=== PATIENT | female | born 1985 | race Caucasian/White ===

== ENCOUNTER 2018-10-12 22:18 | Emergency (ER) | payer BC ==
--- NOTE | 2018-10-12 23:02 | ED ---
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 She states that she drank a little. Per the EMS she was attempting to ride a bus to [place] but missed the bus several times. [facility] and was supposed to start detox today. She also denies n/v. LEVEL 5 CAVEAT. Full Hx unobtainable due to pt being intoxicated. - History Of Current Complaint Chief Complaint: EDSubstanceAbuse Stated Complaint: 2208, SUBSTANCE ABUSE PER EMS Time Seen by Provider: 10/12/18 22:32 Hx From Patient Unobtainable Due To: Other - LEVEL 5 CAVEAT. Full Hx unobtainable due to pt being intoxicated. Ingestion History: Type/Name Of Drug - EtOH Overdose Characteristics: Oral Severity Initially: Moderate Severity Currently: Moderate Associated Signs And Symptoms: Negative - n/v PMH/Surg Hx/FS Hx/Imm Hx Sensory History: Denies: Hx Legally Blind, Hx Deafness Opthamlomology History: Denies: Hx Legally Blind EENT History: Denies: Hx Deafness Infectious Disease History: No Infectious Disease History: Denies: Traveled Outside the [place] in Last 30 Days - Family History Family History: LEVEL 5 CAVEAT. Full Hx unobtainable due to pt being intoxicated. - Social History Alcohol Use: Daily Substance Use Type: Reports: Other Substance Use Comment - Amount & Last Used: unknown Smoking Status (MU): Unknown if Ever Smoked Review of Systems Negative: Vomiting, Nausea All Other Systems Reviewed And Are Negative: No - Comments Additional Review of Systems Comments: LEVEL 5 CAVEAT. Full Hx unobtainable due to pt being intoxicated. Physical Exam - Summary Physical Exam Summary: Appearance: Well-appearing, Well-nourished, lying in bed comfortable, intoxicated Skin: Warm, dry, no obvious rash Eyes: sclera anicteric, no conjunctival pallor ENT: mucous membranes moist Neck: deferred Respiratory: No signs of respiratory distress Cardiovascular: Appears well perfused, pulses are nml Abdomen: deferred Musculoskeletal: Moving all 4 extremities without obvious discomfort Neurological: Awake and alert, mentation is normal, speech is fluent and appropriate Psychiatric: affect is normal, does not appear anxious or depressed, No head trauma, arouses to voice, can answer simple questions, mostly mumbling incoherently. Triage Information Reviewed: Yes Vital Signs On Initial Exam: Initial Vitals Temp Pulse Resp BP Pulse Ox 96.8 F 80 16 106/76 98 10/12/18 22:21 10/12/18 22:21 10/12/18 22:21 10/12/18 22:21 10/12/18 22:21 Vital Signs Reviewed: Yes Completion Of Physical Exam Limited Due To: Level 5 - LEVEL 5 CAVEAT. Full Hx unobtainable due to pt being intoxicated. Diagnostics - Vital Signs Vital Signs Temp Pulse Resp BP Pulse Ox 10/12/18 22:21 96.8 F 80 16 106/76 98 - Laboratory Lab Statement: Any lab studies that have been ordered have been reviewed, and results considered in the medical decision making process. Course/Dx - Diagnoses Provider Diagnoses: Alcohol intoxication Discharge ED - Sign-Out/Discharge Documenting (check all that apply): Patient Departure Patient Received Moderate/Deep Sedation with Procedure: No - Discharge Plan Condition: Improved Disposition: HOME Patient Education Materials: Alcohol Intoxication (ED) Referrals: [facility] [Outside] - Billing Disposition and Condition Condition: IMPROVED Disposition: Home - Attestation Statements Document Initiated by Scribe: Yes Documenting Scribe: Samm Childress Provider For Whom Raul is Documenting (Include Credential): Gabriel Chaparro MD Scribe Attestation: Samm Gramajo, scribed for Gabriel Chaparro MD on 10/13/18 at 0533. Scribe Documentation Reviewed: Yes Provider Attestation: The documentation as recorded by the swetaibSamm boone accurately reflects the service I personally performed and the decisions made by me, Gabriel Chaparro MD Status of Scribe Document: Viewed
[2018-10-12] MEDS ORDERED: NS 0.9% 1000 ML** 2,000 ML IV ONE (23:29)
--- OUTSIDE RECORDS SUMMARY | 2018-10-13 06:20 | XMS REPORT ---
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 71261838 other mental disorder Problem Asthma, persistent J45.998 Active 774887992 not controlled Problem Essential I10 Active 22939130 hypertension Problem Alcohol abuse F10.10 Active 76178660 Problem Allergic rhinitis J30.9 Active 01774924 Problem Cigarette nicotine F17.210 Active 92979216 dependence without complication ALLERGIES No Information ENCOUNTERS Encounter Location Date Diagnosis [address] Dec, [place] [address] Dec, [place] [address] Nov, [place] [address] Oct, [place] [address] Sep, [place] [address] [employer] [facility] [address] [place], Aug, [place] [address] disorder F41.1 and OCD (obsessive compulsive disorder) F42.[address] Aug, [place] [address] Aug, Alcohol abuse F10.10 ; [place] [address] Generalized anxiety disorder F41.1 ; OCD (obsessive compulsive disorder) F42.9 and ADHD (attention deficit hyperactivity disorder) F90.9 [facility] [address] [place] [address] Jul, [place] [address] Jul, [place] [address] complication F10.929 and Labored breathing R06.4 [facility] [address] [place] [address] Jul, [place] [address] Jul, [place] [address] Jul, [place] [address] [facility] [address] [place] [address] Jul, OCD (obsessive compulsive [place] disorder) F42.9 [address] [facility] [address] [place], [place] [address] [place], [place] [address] June, [place] [address] June, [place] [address] May, Alcohol abuse F10.10 [place] [address] Generalized anxiety disorder F41.[address] May, [place], [place] [address] controlled J45.[address] May, Generalized anxiety [facility] [place] [address] disorder F41.1 [facility] [address] [place], [place] [address] May, [place] [address] May, [place] [address] Apr, [place] [address] disorder F41.1 [facility] [address] [facility] Apr, Alcohol abuse F10.10 [place] [address] Generalized anxiety disorder F41.1 [facility] [address] [place], Apr, OCD [place] [address] disorder) F42.9 [facility] Resource - UNKNOWN Apr, [place] [facility] [address] [place], [place] [address] [facility] [address] [place], Mar, OCD [place] [address] disorder) F42.9 [facility] [address] [place], [place], [place] [address] [facility] [address] [place], Mar, Alcohol abuse F10.10 [place] [address] [facility] [address] [facility] Mar, Alcohol abuse F10.10 [place] [address] Assistance with transportation Z74.8 [facility] [address] [place] [address] Mar, [place] [address] [facility] [address] Feb, [place] [address] [facility] [address] Feb, [place] [address] [facility] [address] Feb, [place] [address] [facility] [address] Feb, OCD (obsessive compulsive [place] disorder) F42.9 [address] [facility] [address] [place] [address] Jan, [place] [address] [facility] [address] Jan, [place] [address] [facility] [address] Jan, [place] [address] [facility] [address] Jan, [place] [address] [place] [address] Jan, [facility] [place] [address] [facility] [address] [place], Jan, [place], [place] [address] controlled J45.998 [facility] [address] [place] [address] Jan, [place] [address] Jan, Asthma, [place] [address] controlled J45.998 ; OCD (obsessive compulsive disorder) F42.9 ; Essential hypertension I10 and Alcohol abuse F10.10 [facility] [address] [facility] Jan, [place] [address] Jan, [place] [address] Dec, Alcohol abuse F10.10 [place] [address] OCD (obsessive compulsive disorder) F42.[address] Dec, [place] [address] Dec, [place] [address] Dec, [place] [address] Oct, [place] [address] Oct, [place] [address] Sep, [place] [address] [facility] [address] [place] [address] [place], [place] [address] disorder [address]41[address] Sep, [place] [address] examination Z00.00 ; Generalized anxiety disorder F41.1 ; OCD (obsessive compulsive disorder) F42.9 ; Essential hypertension I10 ; Alcohol abuse F10.10 ; ADHD (attention deficit hyperactivity disorder) F90.9 ; Low blood pressure reading R03.1 and Insomnia due to other mental disorder F51.05 [facility] [address] [facility] [place], [place] [address] Aug, [facility] [place] [address] [facility] [address] [facility] [place], [place], [place] [address] disorder F41.[address] Aug, [place] [address] [facility] [address] [place], 10 Aug, 2017 [place] [address] [facility] [address] [facility] [place], [place] [address] [facility] [address] Jul, Generalized anxiety [place] [address] disorder F41.[address] Jul, [place] [address] June, Generalized anxiety [place] disorder F41.1 [address] May, OCD ([place] [address] disorder) F42.[address] Feb, [place] [address] Feb, [place] [address] disorder F41.1 and OCD (obsessive compulsive disorder) F42.[address] Feb, [place] [address] disorder F41.[address] Jan, [place] [address] disorder F41.1 [facility] [address] [facility] Jan, Generalized [place] [address] disorder [address]41.[address] Dec, Essential [place] [address] and Alcohol abuse F10.[address] Dec, Essential [place] [address] ; Alcohol abuse F10.10 ; Generalized anxiety disorder F41.1 and Mild asthma J45.998 [place] [facility] [address] [facility] [place], Nov, [place] [address] disorder F41.1 [facility] [address] [facility] [place], Oct, OCD [place] [address] disorder) F42.9 and Generalized anxiety disorder F41.[address] Oct, Generalized anxiety [place] disorder F41.1 [address] Oct, Contraceptive management [place] Z30.9 and OCD (obsessive [address] compulsive disorder) F42.[address] Oct, Essential hypertension I10 [place] [address] Oct, [place] [address] Oct, OCD ([place] [address] disorder) F42.[address] Sep, Generalized anxiety [place] disorder F41.1 [address] Sep, [place] [address] disorder F41.[address] [place] [address] Sep, OCD ([place] [address] disorder) F42.[address] Aug, [place] [address] disorder F41.[address] Jul, [place] [address] infection B00.2 and Cigarette nicotine dependence without complication F17.[address] Jul, [place] [address] Jul, En[place] [address] medical examination with abnormal findings Z00.01 and Severe eczema L30.9 [facility] [address] [place], [place] [address] June, Asthma J45.909 ; [place] [address] rhinitis J30.9 ; Acute non-recurrent maxillary sinusitis J01.00 ; OCD (obsessive compulsive disorder) F42.9 ; Essential hypertension I10 and Alcohol abuse F10.[address] June, [place] [address] June, [place] [address] disorder F41.[address] June, Generalized anxiety Health [address] [place] disorder F41.1 [address] [place] [address] . [facility] May, [place] [address] May, [place] [address] [facility] May, [place] [address] [place] [address] [facility] May, [place] [address] [place] [address] [facility] May, [place] [address] [place] [address] [facility] May, [place] [address] [place] [address] [facility] Apr, OCD ([place] [address] disorder) F42.9 [facility] [address] [place], [place] [address] Apr, [place] [address] Z30.9 ; Essential hypertension I10 and OCD (obsessive compulsive disorder) F42.9 [facility] [address] [place], [place] [address] [place] [address] [facility] Apr, [place] [address] [place] [address] [facility] Apr, [place] [address] [place] [address] [facility] Apr, Essential [place] [address] ; Generalized anxiety disorder F41.1 ; OCD (obsessive compulsive disorder) F42.9 and ADHD (attention deficit hyperactivity disorder) F90.9 [place] [address] [facility] Mar, [place] [address] [place] [address] Mar, [place] [address] [place] [address] Feb, [place] [address] [place] [address] [facility] Feb, [place] [address] [place] [address] [facility] Feb, [place] [address] examination Z01.419 ; Screening for malignant neoplasm of cervix Z12.4 and Contraceptive management Z30.[address] Feb, [place] [address] disorder F41.1 ; Alcohol abuse F10.10 ; ADHD (attention deficit hyperactivity disorder) F90.9 ; OCD (obsessive compulsive disorder) F42.9 and Essential hypertension I10 [address] Feb, [place] [address] Feb, [place] [address] disorder F42.[address] Jan, [place] [address] Jan, [place] [address] disorder F42.9 ; Essential hypertension I10 and Contraceptive management Z30.9 IMMUNIZATIONS No Known Immunizations SOCIAL HISTORY Never Assessed REASON FOR REFERRAL FUNCTIONAL STATUS PLAN OF CARE VITAL SIGNS MEDICATIONS Unknown Medications PROCEDURES No Known procedures RESULTS No Results REASON FOR VISIT reschedule filling Insurance Providers [facility] Member Patient Patient Patient Patient Patient Subscriber Subscriber Subscriber Group Insurance Plan Plan Plan Plan ID Relationship Address Phone Name Date of ID Name Date of No Type Insurance Insurance Insurance Coverage to Subscriber Address Phone Name Dates Blue [phone] Blue self Kristeen [id number] Choice Opt [id number] Choice Opt [place] [place] [id number] [place] ttolo Hplex [facility] H[facility] [address] [phone] Medicaid self Kristeen [id number] Wrap [facility] [address] ttolo Blue [phone] Blue self Kristeen [id number] Choice Opt [id number] Choice Opt [place] 4 Medical [place] [facility] [place] [id number] Case [phone] Case self Kristeen [id number] Management [place] [address] ttolo MEDICAL (GENERAL) HISTORY Type Description Date Medical History HTN Medical History Mental Health Medical History Asthma Medical History OCD Medical History Generalized Anxiety Medical History Alcohol Abuse, last used 07/20/2017 Medical History ADHD (attention deficit hyperactivity disorder) Medical History Allergic rhinitis Medical History Cigarette nicotine dependence without complication Medical History History of polysubstance abuse Surgical History Rhinoplasty Surgical History Tonsillectomy Surgical History Right eye Surgery 2016 Surgical History surgery on right foot 2017 Hospitalization History Detox 11/2016 Hospitalization History Drinking and mental health - several times in last 6092-5217 2 years. Hospitalization History Drinking- 6 day stay at the hospital 12/2017 Hospitalization History [facility] detox 04/2018
--- OUTSIDE RECORDS SUMMARY | 2018-10-13 06:20 | XMS REPORT ---
:1985 Author Organization Formerly [facility] Address [address] [place] [address] Care Team Providers Name Role Phone Veronica Brooks Unavailable Unavailable PROBLEMS Type Condition ICD9-CM Code [id number] Code Onset Condition SNOMED Code Dates Status Problem ADHD (attention F90.9 Active 811111297 deficit hyperactivity disorder) Problem OCD (obsessive F42.9 Active 192546224 compulsive disorder) Problem Generalized F41.1 Active 90289783 anxiety disorder Problem Insomnia due to F51.05 Active 76016972 other mental disorder Problem Asthma, persistent J45.998 Active 621010782 not controlled Problem Essential I10 Active 13112827 hypertension Problem Alcohol abuse F10.10 Active 40302735 Problem Allergic rhinitis J30.9 Active 67343497 Problem Cigarette nicotine F17.210 Active 12995118 dependence without complication ALLERGIES No Information ENCOUNTERS Encounter Location Date Diagnosis [address] [employer] [place] Dec, [place] [address] [employer] [place] Dec, [place] [address] [employer] [place] Nov, [place] [address] [employer] [place] Oct, [place] [address] [employer] [place] Sep, [place] [address] [facility] [address] [place], Aug, [place] [address] disorder F41.1 and OCD (obsessive compulsive disorder) F42.[address] [employer] [place] Aug, [place] [address] Aug, Alcohol abuse F10.10 ; [place] [address] Generalized anxiety disorder F41.1 ; OCD (obsessive compulsive disorder) F42.9 and ADHD (attention deficit hyperactivity disorder) F90.9 [facility] [address] [place] [address] Jul, [place] [address] Jul, [place] [address] complication F10.929 and Labored breathing R06.4 [facility] [address] [place] [address] Jul, [place] [address] Jul, [place] [address] Jul, [place] [address] [facility] [address] [place] [address] Jul, OCD (obsessive compulsive [place] disorder) F42.9 [address] [facility] [address] [place], [place] [address] [place], [place] [address] June, [place] [address] June, [place] [address] May, Alcohol abuse F10.10 [place] [address] Generalized anxiety disorder F41.[address] May, Asthma, [place] [address] controlled J[address] May, [place] [address] disorder F41.1 [facility] [address] [place], [place] [address] May, [place] [address] May, [place] [address] Apr, [place] [address] disorder [address] Apr, Alcohol abuse F10.10 [place] [address] Generalized anxiety disorder F41.1 [facility] [address] [place], Apr, [place] ([place] [address] disorder) F42.9 [facility] UNKNOWN Apr, [place] [facility] [address] [place], [place] [address] [facility] [address] [place], Mar, OCD ([place] [address] disorder) F42.9 [facility] [address] [place], Mar, Health [address] [place], Mar, Alcohol abuse F10.10 Health [facility] [address] Mar, Alcohol abuse F10.10 [place] [address] Assistance with transportation Z74.8 [facility] [address] [place] [address] Mar, [place] [address] [place] [address] Feb, [place] [address] [place] [address] Feb, [place] [address] [place] [address] Feb, [place] [address] [place] [address] Feb, OCD (obsessive compulsive [place] disorder) F42.9 [address] [place] [address] Jan, [place] [address] [place] [address] Jan, [place] [address] [place] [address] Jan, [place] [address] [place] [address] Jan, [place] [address] [place] [address] Jan, [place] [address] [facility] [address] [place], Jan, [place], [place] [address] controlled J45.[address] [place] [address] [facility] Jan, [place] [address] Jan, Asthma, [place] [address] controlled J45.998 ; OCD (obsessive compulsive disorder) F42.9 ; Essential hypertension I10 and Alcohol abuse F10.10 [facility] [address] [facility] Jan, [place] [address] Jan, [place] [address] Dec, Alcohol abuse F10.10 [place] [address] OCD (obsessive compulsive disorder) F42.[address] Dec, [place] [address] Dec, [place] [address] Dec, [place] [address] Oct, [facility] [place] [address] [place] [address] Sep, [place] [address] [facility] [address] [place] [address] [place], Sep, [place] [address] disorder [address]41[address] Sep, [place] [address] examination Z00.00 ; Generalized anxiety disorder F41.1 ; OCD (obsessive compulsive disorder) F42.9 ; Essential hypertension I10 ; Alcohol abuse F10.10 ; ADHD (attention deficit hyperactivity disorder) F90.9 ; Low blood pressure reading R03.1 and Insomnia due to other mental disorder F51.05 [facility] [address] [facility] [place], [place] [address] Aug, [place] [address] [facility] [address] [facility] [place], [place], [place] [address] disorder F41.[address] Aug, [place] [address] [facility] [address] [place], 10 Aug, 2017 [place] [address] [facility] [address] [facility] [place], [place] [address] Jeffrey Moore [address] Jul, Generalized anxiety [facility] [place] [address] disorder [address]41[address] Jul, [place] [address] June, Generalized anxiety [place] disorder F41.1 [address] May, OCD ([place] [address] disorder) F42.[address] Feb, [place] [address] Feb, [place] [address] disorder F41.1 and OCD (obsessive compulsive disorder) F42.[address] Feb, [place] [address] disorder F41.[address] Jan, [place] [address] disorder F41.1 [facility] Jan, [place] [address] disorder F41.[address] Dec, Essential hypertension I[place] [address] and Alcohol abuse F10.[address] Dec, Essential [place] [address] ; Alcohol abuse F10.10 ; Generalized anxiety disorder F41.1 and Mild asthma J45.998 [place] [facility] [address] [facility] [place], Nov, [place] [address] disorder F41.1 [facility] [address] [facility] [place], Oct, [place] [address] disorder) F42.9 and Generalized anxiety disorder F41.[address] Oct, Generalized anxiety [place] disorder F41.1 [address] Oct, Contraceptive management [place] Z30.9 and OCD (obsessive [address] compulsive disorder) F42.[address] Oct, Essential hypertension I10 [place] [address] Oct, [place] [address] Oct, OCD ([place] [address] disorder) F42.[address] Sep, Generalized anxiety [place] disorder F41.1 [address] Sep, [place] [address] disorder F41.[address] Sep, OCD ([place] [address] disorder) F42.[address] Aug, [place] [address] disorder F41.[address] Jul, [place] [address] infection B00.2 and Cigarette nicotine dependence without complication F17.[address] Jul, [place] [address] Jul, En[place] [address] medical examination with abnormal findings Z00.01 and Severe eczema L30.9 [facility] [address] [place], [place] [address] June, Asthma J45.909 ; [place] [address] rhinitis J30.9 ; Acute non-recurrent maxillary sinusitis J01.00 ; OCD (obsessive compulsive disorder) F42.9 ; Essential hypertension I10 and Alcohol abuse F10.[address] June, [place] [address] June, [place] [address] disorder F41.[address] June, Generalized anxiety [place] disorder F41.1 [address] [facility] [address] [facility] May, [place] [address] May, [place] [address] [place] [address] [facility] May, [place] [address] May, [place] [address] May, [place] [address] May, [place] [address] Apr, OCD ([place] [address] disorder) F42.9 [facility] [address] [place], [place] [address] Apr, [place] [address] Z30.9 ; Essential hypertension I10 and OCD (obsessive compulsive disorder) F42.9 [facility] [address] [place], [place] [address] [place] [address] [facility] Apr, [place] [address] Apr, [place] [address] [place] [address] [facility] Apr, Essential [place] [address] ; Generalized anxiety disorder F41.1 ; OCD (obsessive compulsive disorder) F42.9 and ADHD (attention deficit hyperactivity disorder) F90.9 [place] [address] [facility] Mar, [place] [address] [place] [address] [facility] Mar, [place] [address] Feb, [place] [address] Feb, [place] [address] Feb, Rout[place] [address] examination Z01.419 ; Screening for malignant neoplasm of cervix Z12.4 and Contraceptive management Z30.[address] Feb, [place] [address] disorder F41.1 ; Alcohol abuse F10.10 ; ADHD (attention deficit hyperactivity disorder) F90.9 ; OCD (obsessive compulsive disorder) F42.9 and Essential hypertension I10 [address] Feb, [place] [address] Feb, [place] [address] disorder F42.[address] Jan, [place] [address] Jan, [place] [address] disorder F42.9 ; Essential hypertension I10 and Contraceptive management Z30.9 IMMUNIZATIONS No Known Immunizations SOCIAL HISTORY Never Assessed REASON FOR REFERRAL FUNCTIONAL STATUS PLAN OF CARE Activity Details Follow Up after hospitalization Reason: VITAL SIGNS Heart Rate 24 2018-07-30 Height 67.6 in 2018-07-30 Oximetry 99 % 2018-07-30 Blood pressure systolic 155 mm Hg 2018-07-30 Blood pressure diastolic 115 mm Hg 2018-07-30 MEDICATIONS Medication Instructions Dosage Frequency Start End Duration Status Date Date Lamotrigine 100 Orally Once a 1 tablets 24h Not-Takin MG day g Ibuprofen 600 Orally Three 1 tablet 8h May, day(s) Not-Takin MG times a day 2016 g Naltrexone HCl Orally Once a 1 tablet 24h Mar, day(s) Active 50 mg day 2019 Claritin 10 mg Orally Once a 1 tablet 24h Jan, Nov, days Active day 2017 2018 Abilify 2 MG Orally Once a 1 tablet 24h Not-Takin day g Flovent HFA 220 Inhalation Twice 1 puff 12h Active MCG/ACT a day Clonidine HCl Orally as 1 tab , day(s) Active 0.1 MG directed 2 tabs qpm Ventolin HFA Inhalation every 2 puffs as 6h Jan, Active 108 (90 Base) 6 hrs needed 2018 MCG/ACT Flonase 50 Nasally Once a 1 spray in 24h Jan, Not-Takin MCG/ACT day each 2017 g nostril Fluoxetine HCl Orally Once a 1 tablet 24h 30 days Active 40 mg day BuPROPion HCl Orally Once a 1 tablet 24h Sep, day(s) Active ER (XL) 150 MG day in the 2017 morning Gabapentin 600 Orally three 1 cap(s) 8h Active MG times a day BuPROPion HCl Orally Once a 1 tablet 24h Sep, day(s) Active ER (XL) 300 MG day in the 2017 morning Antabuse 250 MG Orally Once a 1 tablet 24h Mar, day(s) Active day 2019 Labetalol HCl Orally Twice a 1 tablet 12h 30 day(s) Active 300 MG day Trazodone HCl Orally qhs 2 tab(s) 30 day(s) Active 100 mg Singulair 10 mg Orally Once a 1 tablet 24h Jan, day(s) Not-Takin day 2017 g PROCEDURES Procedure Date Ordered Result Body Site SMOKING + 2ND HAND ASSESSED July 30, 2018 Oxygen saturation results documented and reviewed July 30, 2018 BLOOD PRESSURE, MEASURED July 30, 2018 RESULTS No Results REASON FOR VISIT Emergency Appt Insurance Providers [facility] Member Patient Patient Patient Patient Patient Subscriber Subscriber Subscriber Group Insurance Plan Plan Plan Plan ID Relationship Address Phone Name Date of ID Name Date of No Type Insurance Insurance Insurance Coverage to Subscriber Address Phone Name Dates Case [phone] Case self Kristeen [id number] Management [place] [address] [facility] [address] [facility] ttolo Blue [phone] Blue self Kristeen [id number] Choice Opt [id number] 89 Choice Opt [place] 4 Medical [facility] Medical [place] [address] Medicaid [id number] Medicaid self Kristeen [id number] Wrap [facility] [address] [facility] [address] ttolo Blue [phone] Blue self Kristeen [id number] Choice Opt 9255 Attn 83 Choice Opt [place] [id number] [place] [facility] [address] MEDICAL (GENERAL) HISTORY Type Description Date Medical [...] mental health - several times in last 5826-8086 2 years. Hospitalization History Drinking- 6 day stay at the hospital 12/2017 Hospitalization History [facility] detox 04/2018
[2018-10-13 09:26] VITALS: BP 115/79
== END 2018-10-13 09:30 | disposition home or self-care (01) ==
LOC: ED 22:18
DX: F10.929 Alcohol use, unspecified with intoxication, unspecified (principal)
CPT/HCPCS: 96360; 99282